=== PATIENT | male | born 1975 | race Asian ===

== ENCOUNTER 2019-03-05 11:09 | Emergency (ER) | payer OTHER ==
[2019-03-05 11:35] LABS: PLATELET COUNT 294 10^3/uL (150-400)
--- NOTE | 2019-03-05 12:08 | EDPHY ---
H & P Stated Complaint: syncope Time Seen by Provider: 03/05/19 11:09 HPI/ROS: CHIEF COMPLAINT: Syncope HISTORY OF PRESENT ILLNESS: 43-year-old male presents after syncopal episode. He was at work at [employer] using a mop, when he began to feel lightheaded. He stopped mopping and then developed tunnel vision and had a witnessed syncopal episode. He awoke immediately and now feels back to normal. He struck the left chest wall during the fall. No known head injury. No headache or neck pain. No prior history of syncope. He ate breakfast this morning and slept well. No recent illness. REVIEW OF SYSTEMS: complete 10 point ROS reviewed and is negative except for the noted elements in the HPI - Personal History Current Tetanus/Diphtheria Vaccine: Yes Current Tetanus Diphtheria and Acellular Pertussis (TDAP): Yes - Medical/Surgical History Hx Asthma: No Hx Chronic Respiratory Disease: No Hx Diabetes: Yes Hx Cardiac Disease: No Hx Renal Disease: No Hx Cirrhosis: No Hx Alcoholism: No Hx HIV/AIDS: No Hx Splenectomy or Spleen Trauma: No Other PMH: type 2 diabetes - Physical Exam Exam: General Appearance: Alert, pleasant Eyes: Pupils equal and round, no conjunctival pallor or injection ENT, Mouth: Mucous membranes moist Neck: Normal inspection, no midline tenderness, range of motion without pain Respiratory: Left anterior chest wall tenderness, lungs are clear to auscultation Cardiovascular: Regular rate and rhythm Gastrointestinal: Abdomen is soft and nontender Neurological: Alert, oriented x3, cranial nerves II through XII intact, motor 5 /5, sensory grossly intact Skin: Warm and dry Extremities: Normal inspection Psychiatric: Mood and affect normal Constitutional: Initial Vital Signs Temperature (C) 36.7 C 03/05/19 11:14 Heart Rate 76 03/05/19 11:14 Respiratory Rate 18 03/05/19 11:14 Blood Pressure 137/98 H 03/05/19 11:14 O2 Sat (%) 98 03/05/19 11:14 O2 Delivery Mode Room Air Allergies/Adverse Reactions: No Known Allergies Allergy (Unverified 03/05/19 11:13) Home Medications: Medication Instructions Recorded Diabetic Med 03/05/19 Medical Decision Making - Diagnostics EKG Interpretation: EKG interpreted by me reveals normal sinus rhythm, rate 73, no ST or T segment changes. Interpretation: Normal EKG Imaging Results: CXR: no fx or PTX Imaging: I viewed and interpreted images myself ED Course/Re-evaluation: This patient presents after a syncopal episode, most likely vasovagal in etiology, given young age and prodromal symptoms. Stat EKG reveals no evidence of ischemia or dysrhythmia. Electrolytes are normal, including glucose. IV normal saline 1 L given. Chest x-ray reveals no evidence rib fracture or pneumothorax. I feel that he is safe and stable for discharge home. Warning signs discussed. Differential Diagnosis: Differential diagnosis includes though is not limited to cardiac dysrhythmia, CVA, TIA, GI bleed, sepsis, hypoglycemia. - Data Points Laboratory Results: Laboratory Results 03/05/19 11:20 03/05/19 11:20 03/05/19 03/05/19 03/05/19 11:21 11:20 11:20 WBC 8.15 10^3/uL 10^3/uL (3.80-9.50) RBC 4.79 10^6/uL 10^6/uL (4.40-6.38) Hgb 14.6 g/dL g/dL (13.7-17.5) Hct 42.1 % % (40.0-51.0) MCV 87.9 fL fL (81.5-99.8) MCH 30.5 pg pg (27.9-34.1) MCHC 34.7 g/dL g/dL (32.4-36.7) RDW 12.6 % % (11.5-15.2) Plt Count 294 10^3/uL 10^3/uL (150-400) MPV 10.1 fL fL (8.7-11.7) Neut % (Auto) 55.0 % % (39.3-74.2) Lymph % (Auto) 36.7 % % (15.0-45.0) [place] % (Auto) 5.0 % % (4.5-13.0) Eos % (Auto) 1.7 % % (0.6-7.6) Baso % (Auto) 0.7 % % (0.3-1.7) Nucleat RBC Rel Count 0.0 % % (0.0-0.2) Absolute Neuts (auto) 4.48 10^3/uL 10^3/uL (1.70-6.50) Absolute Lymphs (auto) 2.99 10^3/uL 10^3/uL (1.00-3.00) Absolute Monos (auto) 0.41 10^3/uL 10^3/uL (0.30-0.80) Absolute Eos (auto) 0.14 10^3/uL 10^3/uL (0.03-0.40) Absolute Basos (auto) 0.06 10^3/uL 10^3/uL (0.02-0.10) Absolute Nucleated RBC 0.00 10^3/uL 10^3/uL (0-0.01) Immature Gran % 0.9 % % (0.0-1.1) Immature Gran # 0.07 10^3/uL 10^3/uL (0.00-0.10) Sodium 143 mEq/L mEq/L (135-145) Potassium 4.3 mEq/L mEq/L (3.5-5.2) Chloride 107 mEq/L mEq/L (97-110) Carbon Dioxide 24 mEq/l mEq/l (22-31) Anion Gap 12 mEq/L mEq/L (6-14) BUN 16 mg/dL mg/dL (7-23) Creatinine 0.6 mg/dL L mg/dL (0.7-1.3) Estimated GFR > 60 Glucose 114 mg/dL H mg/dL (70-100) Calcium 9.7 mg/dL mg/dL (8.5-10.4) POC Troponin I 0.00 ng/mL ng/mL (0.00-0.08) Point of Care Test Results: Chemistry 03/05/19 11:21 POC Troponin I 0.00 ng/mL ng/mL (0.00-0.08) Departure - Departure Disposition: Home, Routine, Self-Care Clinical Impression: Syncope, Chest wall contusion Condition: Good Instructions: Syncope (ED), Contusion in Adults (ED) Additional Instructions: Ibuprofen 600 mg 3 times daily while the pain persists. Referrals: Kassandra Evans MD [Primary Care Provider] - 5-7 days, call for appt.
[2019-03-05 12:46] VITALS: BP 129/85
--- NOTE | 2019-03-05 15:39 | CPEKG ---
Test Reason : OPEN Blood Pressure : / mmHG Vent. Rate : 073 BPM Atrial Rate : 072 BPM P-R Int : 169 ms QRS Dur : 083 ms QT Int : 379 ms P-R-T Axes : 069 052 032 degrees QTc Int : 418 ms Sinus rhythm Confirmed by Idalia Arredondo ([id number]) on 03/05/2019 3:38:58 PM Referred By: Idalia Arredondo Confirmed By:Idalia Arredondo
== END 2019-03-05 12:45 | disposition home or self-care (01) ==
DX: R55 Syncope and collapse (principal); S20.212A Contusion of left front wall of thorax, initial encounter; E11.9 Type 2 diabetes mellitus without complications; W19.XXXA Unspecified fall, initial encounter; Y93.E5 Activity, floor mopping and cleaning; Y99.0 Civilian activity done for income or pay
CPT/HCPCS: 84484-ER